=== PATIENT | male | born 1975 | race African-American/Black ===

== ENCOUNTER 2018-09-26 13:52 | Emergency (ER) | payer OTHER ==
[2018-09-26 13:56] VITALS: BMI 25.8
[2018-09-26] MEDS ORDERED: ONDANSETRON 4 MG/2 ML VIAL ONE (14:15)
[2018-09-26] MEDS ORDERED: SODIUM CHLORIDE 1,000 ML IV STA (14:15)
[2018-09-26] MEDS ORDERED: ONDANSETRON 4 MG/2 ML VIAL IVPB ONE (14:15)
--- NOTE | 2018-09-26 14:15 | PDOC ---
History of Present Illness - General Chief Complaint: Pain, Acute Stated Complaint: ABD PAIN Time Seen by Provider: 09/26/18 13:54 - History of Present Illness Initial Comments: Chief complaint: Nausea and vomiting History of present illness: Patient with limited desire to cooperate, refuses to provide significant clinical information including duration, instigating factors, and exact nature of the emesis other than it contained no blood. Review of systems: Systems review was attempted but the patient declined answers Past medical history: The patient has had similar episodes in the past which have been attributed to marijuana use. He admits using marijuana periodically and had used marijuana the night before onset. Social/family history: Patient declines to answer Physical exam: Alert and oriented, no acute distress, no retching or vomiting during examination Afebrile, vital signs normal No pallor or icterus. PERRLA, ENT clear Neck supple without bruit mass or nodes Chest clear CV regular without murmur rub or gallop Abdomen nondistended. Bowel sounds normal. Soft without mass tenderness organomegaly Extremities no CCE Skin clear, no rash, adequate turgor and wet mucous membranes Neurological intact Impression: Vague symptoms of nausea and vomiting, possibly acute gastroenteritis, possibly cyclic vomiting syndrome. No fever now. No diarrhea. No abdominal tenderness suggestive of significant intra-abdominal disease. Plan: IV hydration, antiemetics, and further symptomatic treatment. Observation. Contact primary physician for further information Past History - Past Medical History Allergies/Adverse Reactions: Allergies Allergy/AdvReac Type Severity Reaction Status Date / Time iodine Allergy Intermediate Verified 09/26/18 13:53 shellfish derived Allergy Intermediate Verified 09/26/18 13:53 Home Medications: Ambulatory Orders NK [No Known Home Medication] 09/26/18 COPD: No Diabetes: Yes (pt. denies this today ) - Immunization History Immunization Up to Date: No - Suicide/Smoking/Psychosocial Hx Smoking History: Never smoked Have you smoked in the past 12 months: No Number of Cigarettes Smoked Daily: 5 If you are a former smoker, when did you quit?: 2 'Breaking Loose' booklet given: 10/12/13 Hx Alcohol Use: No Drug/Substance Use Hx: Yes (DAILY MARIJUANNA) Substance Use Type: None *Physical Exam - Vital Signs Last Vital Signs Temp Pulse Resp BP Pulse Ox 0/0 L 09/26/18 13:52 ED Treatment Course - LABORATORY CBC & Chemistry Diagram: 09/26/18 14:22 09/26/18 14:22 Medical Decision Making - Medical Decision Making Dr. Maxwell Osorio was contacted by phone. He has seen the patient in frequently in the past, and does not know him very well. His records do not indicate significant disease, prior drug use, or prior recurrent episodes of gastrointestinal distress. After hydration and anti-emetic administration, the patient felt much better. There was no further vomiting. Nausea resolved. Abdomen remained soft and nontender He was discharged to follow-up with primary physician and again the possibility of marijuana use being responsible for her symptoms was discussed. He was not at all forthcoming and it is uncertain whether he will curb marijuana use as recommended. *DC/Admit/Observation/Transfer Diagnosis at time of Disposition: Acute gastroenteritis - Discharge Dispostion Disposition: HOME Condition at time of disposition: Improved Decision to Admit order: No - Referrals Referrals: Faustino Osorio MD [Primary Care Provider] - - Patient Instructions Printed Discharge Instructions: DI for Viral Gastroenteritis -- Adult - Post Discharge Activity
[2018-09-26 14:40] LABS: BASO % 2.2 % (0-2.0); EOS % 0.1 % (0-4.5); HEMATOCRIT 43.6 % (35.4-49); HEMOGLOBIN 14.8 GM/dl (11.7-16.9); LYMPH % 23.4 % (8-40); MCH 32.5 pg (25.7-33.7); MCHC 33.9 g/dl (32.0-35.9); MEAN CELL VOLUME 95.7 fl (80-96); MEAN PLT VOLUME 9.4 fl (7.5-11.1); MONO % 4.2 % (3.8-10.2); NEUT % 70.1 % (42.8-82.8); PLATELET COUNT 202 K/MM3 (134-434); RBC 4.55 M/mm3 (4.00-5.60); RDW 13.5 % (11.9-15.9); WHITE BLOOD COUNT 11.1 K/mm3 (4.0-10.8)
[2018-09-26] MEDS ORDERED: FAMOTIDINE 20 MG/50 ML IVPB 20 MG/50 ML MG IVPB ONE ×2 (14:41→14:44)
[2018-09-26] MEDS ORDERED: KETOROLAC TROMETHAMINE 30 MG/1 ML VIAL IVPUSH ONE (14:41)
[2018-09-26] MEDS ORDERED: KETOROLAC TROMETHAMINE 30 MG/1 ML VIAL ONE (14:44)
[2018-09-26 15:11] LABS: ALBUMIN 4.6 g/dl (3.4-5.0); ALK PHOS 72 U/L (45-117); ANION GAP 11 MMOL/L (8-16); BLOOD UREA NITROGEN 15 mg/dl (7-18); CALCIUM 9.9 mg/dl (8.5-10); CHLORIDE 106 mmol/L (98-107); CO2 23 mmol/L (21-32); CREATININE 1.3 mg/dl (0.55-1.3); GLUCOSE,RANDOM 123 mg/dl (74-106); SGOT/AST 42 U/L (15-37); SGPT/ALT 19 U/L (13-61); SODIUM 140 mmol/L (136-145); TOT PROT 8.3 g/dl (6.4-8.2)
[2018-09-26 15:12] LABS: POTASSIUM 5.1 mmol/L (3.5-5.1)
[2018-09-26 18:11] VITALS: BP 114/68; PULSE 96; TEMP 99.6
== END 2018-09-26 18:18 | disposition home or self-care (01) ==
LOC: FER 13:52
PROC: 3E033GC Introduction of Other Therapeutic Substance into Peripheral Vein, Percutaneous Approach (ICD-10-PCS; principal; 2018-09-26)
PROC: 3E0333Z Introduction of Anti-inflammatory into Peripheral Vein, Percutaneous Approach (ICD-10-PCS; 2018-09-26)
PROC: 3E0337Z Introduction of Electrolytic and Water Balance Substance into Peripheral Vein, Percutaneous Approach (ICD-10-PCS; 2018-09-26)
DX: K52.9 Noninfective gastroenteritis and colitis, unspecified (principal); Z87.891 Personal history of nicotine dependence; E11.9 Type 2 diabetes mellitus without complications
CPT/HCPCS: 36415; 80053; 83690; 85025; 99283-25; J7030

== ENCOUNTER 2019-02-28 08:18 | Day surgery (SDC) | payer OTHER ==
[2019-02-27 07:48] VITALS: BMI 26.9
[2019-02-28 12:07] VITALS: BP 103/70; PULSE 64; TEMP 98.2
== END 2019-02-28 12:07 | disposition home or self-care (01) ==
LOC: JASU-ENDO 08:18 → MERGE 08:18 → JASU-ENDO 12:07
PROVIDERS: ATTEND Internal Medicine Gastroenterology
PROC: 0DB68ZX Excision of Stomach, Via Natural or Artificial Opening Endoscopic, Diagnostic (ICD-10-PCS; 2019-02-28)
PROC: 0DB58ZX Excision of Esophagus, Via Natural or Artificial Opening Endoscopic, Diagnostic (ICD-10-PCS; 2019-02-28)
PROC: 0DB98ZX Excision of Duodenum, Via Natural or Artificial Opening Endoscopic, Diagnostic (ICD-10-PCS; principal; 2019-02-28 09:45)
DX: K29.00 Acute gastritis without bleeding (principal); K29.80 Duodenitis without bleeding; D13.0 Benign neoplasm of esophagus

== ENCOUNTER 2019-03-24 03:03 | Emergency (ER) | payer OTHER ==
--- NOTE | 2019-03-24 03:08 | PDOC ---
History of Present Illness - General Chief Complaint: Pain, Acute Stated Complaint: ABD PAIN Time Seen by Provider: 03/24/19 03:07 - History of Present Illness Initial Comments: 03/24/19 03:20 This 43-year-old man with a history of gastritis/duodenitis seen on EGD [address] Morgan, taking daily Protonix presents with several hour history of burning epigastric pain and nausea, with one episode of vomiting prior to presentation. Patient states that he had been eating very spicy food during the day prior to the onset of the pain (jerk chicken). Patient states that emesis was clear water with a blood/coffee grounds (he had just drunk a glass of water prior to vomiting) The patient used to be a daily marijuana user; he states that he has stopped smoking marijuana and since then generally has fewer episodes of vomiting. He states that he had a brief, self resolving episode of abdominal pain just after the EGD (thinks he may have return to work too soon). Since then, he generally felt better without serious pain or vomiting until the current episode. Past History - Past Medical History Allergies/Adverse Reactions: Allergies Allergy/AdvReac Type Severity Reaction Status Date / Time iodine Allergy Intermediate Verified 09/26/18 13:53 shellfish derived Allergy Intermediate Verified 09/26/18 13:53 Iodine and Iodide Containing Allergy Verified 01/01/19 11:03 Produc Home Medications: Ambulatory Orders Ondansetron [Zofran *Odt*] 4 mg SL BID PRN #10 od.tablet 03/24/19 COPD: No Diabetes: Yes (pt. denies this today ) - Surgical History Orthopedic Surgery: Yes - Immunization History Immunization Up to Date: Yes - Psycho Social/Smoking Cessation Hx Smoking History: Never smoked Have you smoked in the past 12 months: No Number of Cigarettes Smoked Daily: 4 If you are a former smoker, when did you quit?: 2 'Breaking Loose' booklet given: 10/12/13 Hx Alcohol Use: No Drug/Substance Use Hx: No Substance Use Type: None Hx Substance Use Treatment: No Abd/GI Specific PMHX - Complaint Specific PMHX Colitis: No Diverticulitis: No Gall Bladder Disease: No GERD: No Hepatitis: No Irritable Bowel Synd (IBS): No Pancreatitis: No GI Ulcer Disease: No Review of Systems - Review of Systems Able to Perform ROS?: Yes Comments:: 12 point review of systems is negative except for what is noted in the history of present illness *Physical Exam - Physical Exam Comments: GENERAL: Adult male, alert and oriented x3, in moderate distress secondary to nausea/epigastric pain HEAD: Normal with no signs of trauma. EYES: PERRLA, EOMI, sclera anicteric, conjunctiva clear. ENT: Ears normal, nares patent, oropharynx clear without exudates. Dry mucous membranes. NECK: Normal range of motion, supple without lymphadenopathy, JVD, or masses. LUNGS: Breath sounds equal, clear to auscultation bilaterally. No wheezes, and no crackles. HEART:Regular rate and rhythm, normal S1 and S2 without murmur, rub or gallop. ABDOMEN:.normal bowel sounds No guarding,tenderness or rebound.No masses No distention. EXTREMITIES: Normal range of motion, no edema. No clubbing or cyanosis. No erythema, or tenderness. NEUROLOGICAL: Cranial nerves II through XII grossly intact. Normal speech. No focal neurological deficits. MUSCULOSKELETAL: Back non-tender to palpation, no CVA tenderness SKIN: Warm, Dry, normal turgor, no rashes or lesions noted. ED Treatment Course - LABORATORY CBC & Chemistry Diagram: 03/24/19 03:35 03/24/19 03:35 Medical Decision Making - Medical Decision Making 03/24/19 06:47 Patient received 2 doses of Zofran 4 mg IV and Protonix 40 mg IV. Majority of his epigastric pain resolved after this but he had some residual nausea with retching. Normal saline 1.5 L IV also administered to the patient. Reglan 10 mg IV PB administered with full resolution of nausea. Patient is comfortable and will follow up with Dr. Celis on Monday, March 27 as previously scheduled. Discharge - Discharge Information Problems reviewed: Yes Clinical Impression/Diagnosis: Acute gastritis Qualifiers: Gastritis type: unspecified gastritis Gastritis bleeding: without bleeding Qualified Code(s): K29.00 - Acute gastritis without bleeding Condition: Stable Disposition: HOME - Follow up/Referral Referrals: Hosea Morgan DO [Staff Physician] - 3 days - Patient Discharge Instructions Patient Printed Discharge Instructions: Gastritis Additional Instructions: Avoid spicy foods; bland diet Continue Protonix daily as previously Continue to avoid smoking marijuana as previously Zofran ODT 4 mg up to 3 times a day as needed for nausea/vomiting Follow-up with on March 27 as previously scheduled Return to ER if you have persistent nausea/vomiting or develop severe abdominal pain/fever - Post Discharge Activity
[2019-03-24 03:11] VITALS: BP 136/92; PULSE 80; TEMP 98.1; BMI 26.6
[2019-03-24] MEDS ORDERED: SODIUM CHLORIDE 1,000 ML IV STA ×2 (03:18→05:44)
[2019-03-24] MEDS ORDERED: PANTOPRAZOLE SODIUM 40 MG VIAL IVPB ONE (03:18)
[2019-03-24] MEDS ORDERED: ONDANSETRON 4 MG/2 ML VIAL IVPUSH ONE (03:18)
[2019-03-24] MEDS ORDERED: ONDANSETRON 4 MG/2 ML VIAL ONE ×2 (03:19→04:58)
[2019-03-24] MEDS ORDERED: PANTOPRAZOLE SODIUM 40 MG VIAL ONE (03:28)
[2019-03-24 04:19] LABS: BASO % 0.6 % (0-2.0); HEMATOCRIT 42.1 % (35.4-49); HEMOGLOBIN 13.8 GM/dL (11.7-16.9); LYMPH % 13.1 % (8-40); MCH 31.4 pg (25.7-33.7); MCHC 32.8 g/dl (32.0-35.9); MEAN CELL VOLUME 95.5 fl (80-96); MEAN PLT VOLUME 8.7 fl (7.5-11.1); MONO % 7.7 % (3.8-10.2); NEUT % 78.6 % (42.8-82.8); PLATELET COUNT 188 K/MM3 (134-434); RBC 4.41 M/mm3 (4.00-5.60); RDW 14.2 % (11.9-15.9); WHITE BLOOD COUNT 13.6 K/mm3 (4.0-10.0)
[2019-03-24 04:52] LABS: ALBUMIN 4.3 g/dl (3.4-5.0); BILIRUBIN,TOTAL 0.6 mg/dL (0.2-1); BLOOD UREA NITROGEN 16.5 mg/dL (7-18); CALCIUM 9.8 mg/dL (8.5-10.1); CREATININE 1.5 mg/dL (0.55-1.3); POTASSIUM 4.6 mmol/L (3.5-5.1)
[2019-03-24] MEDS ORDERED: ONDANSETRON 4 MG/2 ML VIAL IVPB ONE (04:57)
[2019-03-24] MEDS ORDERED: METOCLOPRAMIDE HCL INJECTION 10 MG/2 ML VIAL IVPB ONE (05:37)
[2019-03-24] MEDS ORDERED: METOCLOPRAMIDE HCL INJECTION 10 MG/2 ML VIAL ONE (05:39)
[2019-03-24 11:37] LABS: PLATELET ESTIMATE ADEQUATE
== END 2019-03-24 06:50 | disposition home or self-care (01) ==
LOC: FER 03:03
PROC: 3E0337Z Introduction of Electrolytic and Water Balance Substance into Peripheral Vein, Percutaneous Approach (ICD-10-PCS; principal; 2019-03-24)
PROC: 3E033GC Introduction of Other Therapeutic Substance into Peripheral Vein, Percutaneous Approach (ICD-10-PCS; 2019-03-24)
DX: K29.00 Acute gastritis without bleeding (principal); Z91.09 Other allergy status, other than to drugs and biological substances; Z91.013 Allergy to seafood; R11.2 Nausea with vomiting, unspecified; E11.9 Type 2 diabetes mellitus without complications; Z87.891 Personal history of nicotine dependence
CPT/HCPCS: 36415; 80053; 83690; 85025; 99283-25; J7030

== ENCOUNTER 2021-01-31 13:18 | Emergency (ER) | payer OTHER ==
[2021-01-31 13:24] VITALS: BP 119/78; PULSE 78; TEMP 97; BMI 26.9
[2021-01-31] MEDS ORDERED: IBUPROFEN 600 MG TABLET (FP) PO ONE ×2 (15:07→15:10)
== END 2021-01-31 15:43 | disposition home or self-care (01) ==
LOC: JERFT 13:18
DX: S60.221A Contusion of right hand, initial encounter (principal); W22.8XXA Striking against or struck by other objects, initial encounter
CPT/HCPCS: 73130-TC-LT-FY; 73130-TC-RT-FY; 99283-25

== ENCOUNTER 2023-07-06 18:26 | Emergency (ER) | payer OTHER ==
[2023-07-06] MEDS ORDERED: SODIUM CHLORIDE 1,000 ML IV STA (19:09)
[2023-07-06] MEDS ORDERED: ONDANSETRON 4 MG/2 ML VIAL IVPUSH ONE ×2 (19:11→22:51)
[2023-07-06 19:39] VITALS: BP 123/84; PULSE 90; RESP 18; TEMP 98.4; BMI 26.6
[2023-07-06] MEDS ORDERED: ONDANSETRON 4 MG/2 ML VIAL ONE ×2 (20:05→22:59)
[2023-07-06 20:52] LABS: HEMATOCRIT 44.8 % (35.4-49); HEMOGLOBIN 15.5 G/dL (11.7-16.9); MCH 32.7 pg (25.7-33.7); MCHC 34.6 g/dl (32.0-35.9); MEAN CELL VOLUME 94.3 fl (80-96); MEAN PLT VOLUME 8.6 fl (7.5-11.1); PLATELET COUNT 191.4 10^3/uL (134-434); RBC 4.75 10^6/uL (4.00-5.60); RDW 14.7 % (11.9-15.9); WHITE BLOOD COUNT 12.1 10^3/uL (4.0-10.8)
[2023-07-06 21:09] LABS: ALBUMIN 4.9 g/dl (3.4-5.0); BILIRUBIN,TOTAL 0.7 mg/dl (0.2-1); CALCIUM 10.1 mg/dl (8.5-10.1); CREATININE 1.2 mg/dl (0.6-1.3); POTASSIUM 4.3 mmol/L (3.5-5.1); TOT PROT 8.2 g/dl (6.4-8.2)
[2023-07-06 21:17] LABS: PLATELET ESTIMATE ADEQUATE
[2023-07-06] MEDS ORDERED: SODIUM CHLORIDE 0.9% 500 ML INFUS.BAG IV ONE (21:32)
[2023-07-06] MEDS ORDERED: KETOROLAC TROMETHAMINE 30 MG/1 ML VIAL IVPUSH ONE (21:33)
[2023-07-06] MEDS ORDERED: KETOROLAC TROMETHAMINE 30 MG/1 ML VIAL ONE (21:35)
== END 2023-07-06 23:51 | disposition home or self-care (01) ==
LOC: FER 18:26
PROC: 3E0333Z Introduction of Anti-inflammatory into Peripheral Vein, Percutaneous Approach (ICD-10-PCS; principal; 2023-07-06)
PROC: 3E033GC Introduction of Other Therapeutic Substance into Peripheral Vein, Percutaneous Approach (ICD-10-PCS; 2023-07-06)
PROC: 3E033GC Introduction of Other Therapeutic Substance into Peripheral Vein, Percutaneous Approach (ICD-10-PCS; 2023-07-06)
PROC: 3E0337Z Introduction of Electrolytic and Water Balance Substance into Peripheral Vein, Percutaneous Approach (ICD-10-PCS; 2023-07-06)
DX: K52.9 Noninfective gastroenteritis and colitis, unspecified (principal); R11.2 Nausea with vomiting, unspecified; R10.84 Generalized abdominal pain
CPT/HCPCS: 36415; 80053; 82550; 82553; 83690; 84484; 85025; 93005; 99284-25

== ENCOUNTER 2023-07-09 08:54 | Emergency (ER) | payer OTHER ==
[2023-07-09] MEDS ORDERED: ONDANSETRON 4 MG/2 ML VIAL IVPUSH ONE (09:07)
[2023-07-09] MEDS ORDERED: SODIUM CHLORIDE 0.9% 1000 ML INFUS.BAG IV ONE (09:07)
[2023-07-09 09:08] VITALS: BP 132/90; PULSE 78; RESP 18; TEMP 98.9; BMI 26.6
[2023-07-09] MEDS ORDERED: MAG HYDROX/AL HYDROX/SIMETH 30 ML UNIT-DOSE CUP PO ONE (09:09)
[2023-07-09] MEDS ORDERED: FAMOTIDINE 20 MG TABLET PO ONE (09:09)
[2023-07-09] MEDS ORDERED: LIDOCAINE VISCOUS 2% ORAL/TOP 15 ML UNIT-DOSE CUP MM ONE (09:10)
[2023-07-09] MEDS ORDERED: FAMOTIDINE 20 MG/50 ML IVPB 20 MG/50 ML MG IVPB ONE ×2 (09:18→09:20)
[2023-07-09] MEDS ORDERED: ONDANSETRON 4 MG/2 ML VIAL ONE (09:19)
[2023-07-09 09:23] LABS: HEMATOCRIT 43.7 % (35.4-49); HEMOGLOBIN 14.1 G/dL (11.7-16.9); MCH 30.8 pg (25.7-33.7); MCHC 32.3 g/dl (32.0-35.9); MEAN CELL VOLUME 95.1 fl (80-96); MEAN PLT VOLUME 8.1 fl (7.5-11.1); PLATELET COUNT 205.4 10^3/uL (134-434); RBC 4.59 10^6/uL (4.00-5.60); RDW 14.9 % (11.9-15.9); WHITE BLOOD COUNT 9.1 10^3/uL (4.0-10.8)
[2023-07-09 09:54] LABS: ALBUMIN 4.7 g/dl (3.4-5.0); BILIRUBIN,TOTAL 0.7 mg/dl (0.2-1); CALCIUM 9.5 mg/dl (8.5-10.1); CREATININE 1.3 mg/dl (0.6-1.3); POTASSIUM 3.9 mmol/L (3.5-5.1); TOT PROT 7.7 g/dl (6.4-8.2)
[2023-07-09] MEDS ORDERED: METOCLOPRAMIDE HCL INJECTION 10 MG/2 ML VIAL IVPB ONE (11:45)
== END 2023-07-09 14:41 | disposition home or self-care (01) ==
LOC: FER 08:54
PROC: 3E033GC Introduction of Other Therapeutic Substance into Peripheral Vein, Percutaneous Approach (ICD-10-PCS; principal; 2023-07-09)
PROC: 3E033GC Introduction of Other Therapeutic Substance into Peripheral Vein, Percutaneous Approach (ICD-10-PCS; 2023-07-09)
DX: R10.13 Epigastric pain (principal); R11.2 Nausea with vomiting, unspecified; K52.9 Noninfective gastroenteritis and colitis, unspecified; K29.70 Gastritis, unspecified, without bleeding
CPT/HCPCS: 36415; 74176-TC; 80053; 83690; 85027; 99284-25